=== PATIENT | male | born 1930 | race Caucasian/White ===

== ENCOUNTER 2016-11-02 12:43 | Day surgery (SDC) | payer MEDICARE ==
[~2016-11-02] VITALS: Ht 172.7 cm; Wt 63.1 kg
[2016-11-05] MEDS ORDERED: ALLEGRA DPS180 MG PO (15:33)
[2016-11-05] MEDS ORDERED: CULTURELLE1 CAP PO (15:34)
[2016-11-05] MEDS ORDERED: PROTONIX40 MG PO (15:34)
[2016-11-05] MEDS ORDERED: FOSRENOL1000 MG PO (15:34)
[2016-11-05] MEDS ORDERED: MIRALAX PACKET17 GM PO (15:34)
[2016-11-05] MEDS ORDERED: NEPHRO-VITE1 TAB PO (15:34)
[2016-11-05] MEDS ORDERED: RENAGEL800 MG PO (15:35)
[2016-11-05] MEDS ORDERED: EMLA CREAM 2.5%5 GM TP (15:35)
[2016-11-05] MEDS ORDERED: THERA1 EACH PO (15:35)
[2016-11-05] MEDS ORDERED: SENSIPAR30 MG PO (15:35)
[2016-11-05] MEDS ORDERED: COLACE-DPS100 MG PO (15:35)
[2016-11-05] MEDS ORDERED: ROBITUSSIN100 MG/5 M PO (15:36)
[2016-11-05] MEDS ORDERED: KAYEXALATE7.5 GM/30 PO (15:36)
[2016-11-05] MEDS ORDERED: MILK OF MAGNESI10 ML PO (15:36)
[2016-11-05] MEDS ORDERED: ULTRAM DPS50 MG PO (15:37)
[2016-11-05] MEDS ORDERED: PROVENTIL HFA6.7 GM IH (15:37)
[2016-11-05] MEDS ORDERED: ZOFRAN4 MG PO (15:37)
[2016-11-05] MEDS ORDERED: TYLENOL DPS325 MG PO (15:37)
[2016-11-05] MEDS ORDERED: DULCOLAX-DPS10 MG PR (15:38)
[2016-11-05] MEDS ORDERED: XOPENEX0.31 MG/3 PO (15:38)
[2016-11-05] MEDS ORDERED: BENGAY ULTRA S1 EACH TP (15:39)
== END 2016-11-02 16:30 | disposition home or self-care (01) ==
LOC: RAD.S 12:43 → EDSTATUS 14:00 → RAD.S 16:30
PROC: B51WYZZ Fluoroscopy of Dialysis Shunt/Fistula using Other Contrast (ICD-10-PCS; principal; 2016-11-02)
DX: T82.858A Stenosis of other vascular prosthetic devices, implants and grafts, initial encounter (principal); N18.6 End stage renal disease; Z79.899 Other long term (current) drug therapy

== ENCOUNTER 2016-11-03 12:55 | Observation (INO) | payer MEDICARE ==
[~2016-11-03] VITALS: Ht 172.7 cm; Wt 65.0 kg
--- NOTE | 2016-11-05 09:07 | HP ---
ADMIT: 11/03/2016 RM/LOC: 419 [facility] MR#: [id number] 26[address] [facility] [address] [place], [place] [address] [place] [address] History and Physical SEX: M AGE: 86 : 1930 DATE OF SERVICE: CHIEF COMPLAINT: Elevated potassium. HISTORY OF PRESENT ILLNESS: Marcos is a very nice 86-year-old male, who is a resident of the assisted at [place], [place], called [facility]. He gets all his medical care in [place]. He was sent to [place] to have an Whxjdh-J-Vhiv placed because his hemodialysis shunt in his right arm appears to be occluded. He is not certain why he came to [place] for the shunt placement, but in any event, he ended up here. While he was here, he had CBC and BMP done. BMP showed severe hyperkalemia with potassium of 6.7, creatinine of 11.7, hemoglobin 11.3, white count 11.5. The patient is completely asymptomatic. He was sent over to [facility] after his [employer] in [place] was contacted and he recommended having hemodialysis tonight on him, not waiting till tomorrow. Dr. Lemus was kind enough to evaluate in the emergency room and contacted Dr. Zaragoza, our supervisor sample, and Dr. Newton will do hemodialysis on him tonight. I am admitting him for inpatient treatment of the hyperkalemia with hemodialysis. He has been given some D50 and some IV insulin to help lower the potassium. Again, he is asymptomatic at this time. EKG does not show any tall T-waves but does appear to be a junctional rhythm with some retrograde P waves. Heart rate is 47. He denies any orthostatics symptoms by his dizziness. No recent illness. ALLERGIES: HE IS ALLERGIC TO COMPAZINE. CURRENT MEDICATIONS: 1. Acidophilus one daily. 2. Anoro Ellipta one puff daily. 3. Fexofenadine 180 mg daily. 4. MiraLax 17 g daily. 5. Multivitamin one daily. 6. Omeprazole 40 mg daily. 7. Renal Caps one tablet at bedtime. 8. Sensipar 60 mg at bedtime. 9. Fosrenol 1000 mg t.i.d. 10.Pro-Stat 1 ounce t.i.d. 11.Renvela 2.4 g with meals. 12.Albuterol metered-dose inhaler p.r.n. 13.Amoxicillin p.r.n. for prophylaxis. 14.Stool softeners p.r.n. 15.Kayexalate p.r.n. 16.Milk of magnesia p.r.n. 17.Zofran p.r.n. 18.Oxygen 2 L/minute at bedtime. PREVIOUS HOSPITALIZATIONS AND OPERATIONS: In his teenage years, he had tonsillectomy. In his 40s, he had hernia repair. Sometime, he had either a right total hip for right hip pinning. ADMIT: 11/03/2016 RM/LOC: 419 [facility] MR#: [id number] [address] [id number] [facility] [place] [address] History and Physical SEX: M AGE: 86 : 1930 SOCIAL HISTORY: He lives in [place], [place] at [facility]. He does not use tobacco products and never has used tobacco products. He does not drink alcohol. He is . His unfortunately has Alzheimer's and is in a assisted at [place], [place]. He is a retired preacher, had done alf work at times. He has 5 children and over 50 great grand children and grandchildren. FAMILY HISTORY: Mother of age 66 of cancer in the abdomen, primary not known. Father of natural causes at age 88. REVIEW OF SYSTEMS: Other than noted above, 10-point review of systems negative. PHYSICAL EXAMINATION: GENERAL: An 86-year-old male, alert, cooperative, and oriented x3. Appears younger than his stated age. VITAL SIGNS: Stable with BP of 128/88, respiratory rate 22, temp 98.4, O2 saturation is 94% on room air. HEENT: Eyes are PERRLA. EOMs intact. TMs not seen. Throat is moist, well hydrated, and not inflamed. NECK: Supple. No lymphadenopathy. No meningeal signs. LUNGS: Clear to auscultation anteriorly. HEART: Regular rate. No murmur heard. ABDOMEN: Soft. No organomegaly or tenderness. : Deferred. RECTAL: Deferred. EXTREMITIES: No clubbing, cyanosis, or edema. Calves are nontender. He has access port on his right arm with fistula but there is no palpable thrill or hump. DIAGNOSTIC IMPRESSION: 1. Hyperkalemia. 2. Renal failure x10 years, on hemodialysis and cause of renal failure unknown. 3. Chronic obstructive pulmonary disease, on nighttime oxygen. 4. Probable occluded AV fistula in the right forearm. PLAN: He is being given, as mentioned above, some D50 IV along with IV insulin for his hyperkalemia. We will monitor his electrolytes tonight and admit for hemodialysis with Dr. Zaragoza. Valente Reeder MD/ jacinto JOB #: [id number] CC: Valente Reeder, Attending Physician ADMIT: 11/03/2016 RM/LOC: 419 [facility] MR#: [id number] [address] [place] [id number] [place] [address] History and Physical SEX: M AGE: 86 : 1930 Jack Whaley Jr., Family Physician
[2016-11-05] MEDS ORDERED: ALLEGRA DPS180 MG PO (15:33)
[2016-11-05] MEDS ORDERED: CULTURELLE1 CAP PO (15:34)
[2016-11-05] MEDS ORDERED: MIRALAX PACKET17 GM PO (15:34)
[2016-11-05] MEDS ORDERED: PROTONIX40 MG PO (15:34)
[2016-11-05] MEDS ORDERED: NEPHRO-VITE1 TAB PO (15:34)
[2016-11-05] MEDS ORDERED: FOSRENOL1000 MG PO (15:34)
[2016-11-05] MEDS ORDERED: RENAGEL800 MG PO (15:35)
[2016-11-05] MEDS ORDERED: EMLA CREAM 2.5%5 GM TP (15:35)
[2016-11-05] MEDS ORDERED: SENSIPAR30 MG PO (15:35)
[2016-11-05] MEDS ORDERED: THERA1 EACH PO (15:35)
[2016-11-05] MEDS ORDERED: COLACE-DPS100 MG PO (15:35)
[2016-11-05] MEDS ORDERED: KAYEXALATE7.5 GM/30 PO (15:36)
[2016-11-05] MEDS ORDERED: MILK OF MAGNESI10 ML PO (15:36)
[2016-11-05] MEDS ORDERED: ROBITUSSIN100 MG/5 M PO (15:36)
[2016-11-05] MEDS ORDERED: ZOFRAN4 MG PO (15:37)
[2016-11-05] MEDS ORDERED: ULTRAM DPS50 MG PO (15:37)
[2016-11-05] MEDS ORDERED: PROVENTIL HFA6.7 GM IH (15:37)
[2016-11-05] MEDS ORDERED: TYLENOL DPS325 MG PO (15:37)
[2016-11-05] MEDS ORDERED: XOPENEX0.31 MG/3 PO (15:38)
[2016-11-05] MEDS ORDERED: DULCOLAX-DPS10 MG PR (15:38)
[2016-11-05] MEDS ORDERED: BENGAY ULTRA S1 EACH TP (15:39)
--- NOTE | 2016-11-10 16:04 | CO ---
ADMIT: 11/03/2016 RM/LOC: 419 [facility] MR#: [id number] 26[address] [facility] [address] [place] [id number] SHEN DE LE[facility]N [facility] [place] [address] Consultation SEX: M AGE: 86 : 1930 DATE OF CONSULTATION: 11/04/2016 ATTENDING PHYSICIAN: Valente Reeder CONSULTING PHYSICIAN: Antonio Zaragoza MD REASON FOR CONSULTATION: End-stage renal disease, on hemodialysis, hyperkalemia. HISTORY OF PRESENT ILLNESS: The patient is an 86-year-old gentleman, who lives in [place], [place]. He has been on hemodialysis for about 10 years. Typical schedule is Sunday, Sunday, and Sunday. He was noted to have an occluded right forearm AV fistula and was sent over to [place] for a tunnel dialysis catheter placement. He had routine labs drawn and was noted to be hyperkalemic with a potassium of 6.7. He was sent over to the emergency room. I was contacted to have hemodialysis as per recommendations by Dr. Villalpando in [place]. Dialysis was uneventful last night. He did have some medical management of hyperkalemia prior to his dialysis with insulin and D50. He feels okay now. He has no direct complaints. He was noted to be bradycardic last night, but his pulse has been better now. He is completely asymptomatic and denies any direct complaints. REVIEW OF SYSTEMS: A complete review of systems is negative in detail except as mentioned in history of present illness above. PAST MEDICAL HISTORY: He is unclear of any medical problems, but reportedly has a history of COPD, hyperkalemia, end-stage renal disease, on hemodialysis, cause unknown. ALLERGIES: COMPAZINE. MEDICATIONS: Reviewed in the chart. SOCIAL HISTORY: Lives in [place]. No tobacco, alcohol, or recreational drug use. He is . FAMILY HISTORY: Denies any family history of chronic kidney disease or renal replacement therapy. PHYSICAL EXAMINATION: VITAL SIGNS: Temperature 96.9 Fahrenheit, pulse 78, blood pressure 106/63. GENERAL: He is comfortable. HEENT: Head is nontraumatic and normocephalic. Extraocular movements are intact. CHEST: Clear to auscultation. CVS: Regular rhythm. S1 and S2 heard. No rubs, murmurs, or gallops. ABDOMEN: Soft, nontender. EXTREMITIES: No edema. ADMIT: 11/03/2016 RM/LOC: 419 [facility] MR#: [id number] [address] [address] [place] [address] Consultation SEX: M AGE: 86 : 1930 ACCESS: Right forearm AV fistula that is occluded. He has a right IJ tunneled dialysis catheter. LABORATORY DATA: Reviewed. His potassium this morning was 4.5, it was 6.7 yesterday. Sodium is 135 today. Hemoglobin is 12.5. ASSESSMENT/PLAN: 1. End-stage renal disease, on hemodialysis. 2. Hyperkalemia - resolved post dialysis. His dialysis was uneventful yesterday and he feels at his baseline today. We may be able to dismiss him today if his clinical course remains uneventful. Thank you for this consultation and allowing me the opportunity to participate in this patient's care. Please do not hesitate to contact me with any questions. Antonio Zaragoza MD/ jacinto JOB #: [id number] CC: Valente Reeder, Attending Physician Jack Whaley Jr., Family Physician
--- NOTE | 2016-12-09 21:36 | ER ---
ADMIT: 11/03/2016 RM/LOC: 419 [facility] MR#: [id number] [address] [address] [place] [address] Emergency Room Report SEX: M AGE: 86 : 1930 DATE: 11/03/2016 An 86-year-old, comes to the Emergency Department by squad. The patient himself has no complaints. He had dialysis port placed. Apparently, he noted a high potassium prior to doing the surgery and subsequently sent him to the Emergency Department. This gentleman receives all his care in [place]. He is not certain why he is here. He really does not want to stay and he states he will follow up with his doctor tomorrow in [place], but again refuses any workup when he stay here. He was eventually aqueous and allowed us to obtain some lab work. PHYSICAL EXAMINATION: CARDIAC: His physical examination revealed no respiratory distress and bradycardia as 3/6 systolic ejection murmur. Recently placed surgical port was noted in the right upper quadrant of his chest. ABDOMEN: His abdomen was unremarkable. NEUROLOGICAL: He had no focal findings. LABS: From the short stay were reviewed. An EKG was done, results of which were unremarkable. He did have a high potassium and was subsequently given regular insulin and D50, and admitted for hyperkalemia and bradycardia. Navin Lemus MD/ jacinto JOB #: [id number] CC: Valente Reeder MD, Attending Physician Jack Whaley Jr, MD, Family Physician
== END 2016-11-04 12:00 ==
LOC: RAD.S 12:55 → 4PCU 17:21
PROVIDERS: ADMIT Family Medicine
PROC: 05HP33Z Insertion of Infusion Device into Right External Jugular Vein, Percutaneous Approach (ICD-10-PCS; principal; 2016-11-03)
PROC: B513ZZA Fluoroscopy of Right Jugular Veins, Guidance (ICD-10-PCS; principal; 2016-11-03)
DX: N18.6 End stage renal disease (principal); E87.5 Hyperkalemia; J44.9 Chronic obstructive pulmonary disease, unspecified; Z88.8 Allergy status to other drugs, medicaments and biological substances; Z99.2 Dependence on renal dialysis